=== PATIENT | male | born 1975 | race Two or more races ===

== ENCOUNTER 2017-07-13 05:16 | Emergency (ER) | payer OTHER, MEDICARE ==
[~2017-07-13] VITALS: Ht 165.1 cm; Wt 89.8 kg
[~2017-07-13 05:16] MED LIST: COL0.6T PO; IND25C PO; QUET25TA PO; WEL100T PO
[2017-07-13 05:55] VITALS: BP 131/82
== END 2017-07-13 05:55 | disposition home or self-care (01) ==
LOC: ER 05:17
DX: M25.461 Effusion, right knee (principal); M10.9 Gout, unspecified; Z87.442 Personal history of urinary calculi; Z88.5 Allergy status to narcotic agent; Z79.899 Other long term (current) drug therapy
CPT/HCPCS: 99281